=== PATIENT | male | born 2000 | race Caucasian/White ===

== ENCOUNTER 2022-08-03 19:54 | Emergency (ER) | payer BC ==
[2022-08-03] MEDS ORDERED: HYDROmorphone 1 MG/ML Syringe IVPUSH ONE ×2 (20:06→21:12)
[2022-08-03] MEDS ORDERED: ceFAZolin 2 GM in Sodium Chloride 0.9% 50 ML IV STA (20:20)
[2022-08-03] MEDS ORDERED: Sodium Chloride 0.9% 1,000 ML IV SCH (21:15)
[2022-08-04] MEDS ORDERED: HYDROmorphone 0.5 MG/0.5 ML Syringe IVPUSH ONE (00:33)
== END 2022-08-04 01:36 ==
LOC: JD.ED 19:54
DX: S82.51XB Displaced fracture of medial malleolus of right tibia, initial encounter for open fracture type I or II (principal); S82.61XB Displaced fracture of lateral malleolus of right fibula, initial encounter for open fracture type I or II; Z86.16 Personal history of COVID-19; Z87.891 Personal history of nicotine dependence; Z20.822 Contact with and (suspected) exposure to COVID-19; W22.8XXA Striking against or struck by other objects, initial encounter
CPT/HCPCS: 29515; 73590; 73600; 87635; 96374; 96375; 96376; 99285; J0690; J1170; J7030; U0002